=== PATIENT | female | born 1980 | race Caucasian/White ===

== ENCOUNTER 2022-10-09 07:30 | Emergency (ER) | payer OTHER, SELFPAY ==
[2022-10-09 07:40] VITALS: BP 107/68; PULSE 94; RESP 16; TEMP 36.3; O2SAT 99; BMI 26.9
--- NOTE | 2022-10-09 08:31 | ED_ITS ---
HPI - Dental/Oral General Chief complaint: Dental/Oral Stated complaint: Facial swelling Time Seen by Provider: 10/09/22 08:25 Source: patient Mode of arrival: ambulatory Limitations: no limitations History of Present Illness HPI Narrative: 42-year-old female with history of poor dentition, poor dental care, history of drug use who presents to the ER for evaluation of acute onset of right upper dental pain and facial swelling that started yesterday. She states she does not have a dentist and cannot recall the last time she went to a dentist. She denies any known injury but has several broken and infected teeth. She states the right upper molar feels infected. She woke up this morning with swelling to her right cheek. She has no pain with opening and closing of her jaw. No fever or chills. She took Aleve with some relief. MD Complaint: tooth pain Location: Tooth # (3) Onset (ago): day(s) (2) Duration: worsening Severity: moderate Severity scale (1-10): 7 Relieving factors: NSAIDs Exacerbating factors: nothing Context: history of dental caries and poor dental care Associated symptoms: gum swelling Treatment prior to arrival: none Related Data Previous Rx's Medication Instructions Recorded amoxicillin 875 mg-potassium 1 tab PO BID #20 tabs 10/09/22 clavulanate 125 mg tablet ibuprofen 600 mg tablet 600 mg PO Q8H PRN pain #20 tabs 10/09/22 Allergies Allergy/AdvReac Type Severity Reaction Status Date / Time latex [LATEX] Allergy Severe ANAPHYLAXIS Verified 10/09/22 07:39 Review of Systems Review of Systems: Yes all other systems are reviewed and are negative [facility] Social History Social History Advance Directives: No Advance Directives Information Provided: Yes Physical Exam Vital Signs: Vital Signs: Last Vital Signs Temp 97.4 F 10/09/22 07:40 Pulse 94 10/09/22 07:40 Resp 16 10/09/22 07:40 BP 107/68 10/09/22 07:40 Pulse Ox 99 10/09/22 07:40 O2 Del Method Room Air 10/09/22 07:40 BMI result Body Mass Index 26.9 Appearance: Alert. Oriented X3. No acute distress. HEENT: Normocephalic, atraumatic. There is mild to moderate right-sided facial swelling in the right maxillary area. No trismus. She has poor dentition with several broken and decaying teeth. Right upper molar, tooth 3. It is tender with associated gingival swelling and erythema, no palpable fluctuance. CVS: Normal heart rate and rhythm. Pulses normal. Respiratory: No respiratory distress. Lungs are clear throughout Skin: Skin warm and dry. Normal skin color. Normal skin turgor. No rashes. Extremities: Normal inspection x4, no joint swelling. Neuro: Oriented X 3. No motor deficit. No sensory deficit. Medical Decision Making Medical Decision Making MDM Narrative: 42-year-old female presents to the ER for evaluation of right-sided facial swelling and right upper molar pain since yesterday. No palpable area on examination to drain today. Will start on empiric antibiotics and NSAIDs for anti-inflammatory and pain control. Emergency dental is provided to the patient. Importance of dental follow-up was encouraged and patient expressed understanding. She is on Suboxone. Will defer narcotics. She is stable for discharge home with oral antibiotics and ibuprofen. Patient agrees with plan. 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 Complete the entire course and do not miss any doses. You can also use [id number] topical Orajel as needed to for pain If you develop new or worsening symptoms call 911 or come back to the ER for further evaluation. Prescriptions: New amoxicillin-pot clavulanate 875-125 mg tablet 1 tab PO BID Qty: 20 0RF ibuprofen 600 mg tablet 600 mg PO Q8H PRN (Reason: pain) Qty: 20 0RF Interventions: ED Discharge Assessment Last Done: 10/09/22 08:49 Discharge Date/Time: 10/09/22 08:49
== END 2022-10-09 08:49 | disposition home or self-care (01) ==
PROVIDERS: Emergency Provider Emergency Medicine
DX: K04.7 Periapical abscess without sinus (principal); Z79.899 Other long term (current) drug therapy
CPT/HCPCS: 99282; 99283

== ENCOUNTER 2024-08-31 00:40 | Emergency (ER) | payer OTHER, SELFPAY ==
--- NOTE | 2024-08-31 | ECG_ITS ---
Test Reason : LEG SWELLING Blood Pressure : */* mmHG Vent. Rate : 94 BPM Atrial Rate : 94 BPM P-R Int : 128 ms QRS Dur : 86 ms QT Int : 374 ms P-R-T Axes : 77 46 62 degrees QTcB Int : 467 ms Normal sinus rhythm Normal ECG No previous ECGs available Referred By: Generic ED Physician Electronically Signed By: BILL HOUSE MD
--- NOTE | ~2024-08-31 | US_ITS ---
CLINICAL HISTORY: bilateral leg pain and swelling Venous duplex ultrasound bilateral lower extremity Comparison: None Findings: The visualized deep veins are fully compressible with normal Doppler color flow and spectral tracings. IMPRESSION: 1. Negative for bilateral lower extremity deep vein thrombosis. This document has been electronically signed by: Snow Hutton on 08/31/2024 05:24:15
[2024-08-31 00:47] VITALS: BP 139/88; PULSE 103; RESP 18; TEMP 37.1; O2SAT 97; BMI 29.6
[2024-08-31 01:10] VITALS: BP 136/88; PULSE 94; RESP 19; TEMP 36.6; O2SAT 98
[2024-08-31 01:49] LABS: Alanine Aminotransferase 71 U/L (0-31); Albumin Level 3.7 g/dL (3.5-5.0); Anion Gap 16 (12-20); Aspartate Amino Transferase 67 U/L (5-31); Bilirubin Total 0.2 mg/dL (0.0-1.0); Blood Urea Nitrogen 10 mg/dL (9-16); Calcium 8.8 mg/dL (8.4-10.2); Carbon Dioxide 21 mmol/L (22-29); Chloride 105 mmol/L (96-108); Estimated Glomerular Filt Rate > 60; Glucose Random 98 mg/dL (60-115); Potassium 4.3 mmol/L (3.3-5.1); Sodium 138 mmol/L (135-145); Total Protein 7.6 g/dL (6.5-8.0)
[2024-08-31 01:51] LABS: Basophils Percent Auto 0.3 % (0-2); Eosinophils Absolute Auto 0.1 X10*3/uL (0.0-0.4); Eosinophils Percent Auto 1.1 % (0-4); Hematocrit 37.4 % (37.0-47.0); Hemoglobin 12.2 g/dl (12.0-16.0); Imm Gran Abs Auto 0.01 X10*3/uL (0.00-0.03); Imm Gran Pct Auto 0.2 % (0.0-0.4); Lymphocytes Absolute Auto 2.8 X10*3/uL (1.2-4.9); Lymphocytes Percent Auto 41.4 % (20-40); Mean Corpuscular HGB Conc 32.6 g/dl (31.0-35.0); Mean Corpuscular Hemoglobin 25.7 pg (27.0-33.0); Mean Corpuscular Volume 78.9 fL (80.0-98.0); Mean Platelet Volume 9.3 fL (9.4-12.3); Monocytes Absolute Auto 0.4 X10*3/uL (0.1-1.2); Monocytes Percent Auto 6.5 % (2-11); Neutrophils Absolute Auto 3.4 x10*3/uL (2.0-8.3); Neutrophils Percent Auto 50.5 % (45-73); Platelet Count 209 X10*3/uL (160-400); Red Blood Count 4.74 X10*6/uL (4.20-5.50); Red Cell Distribution Width 13.4 % (11.0-16.0); White Blood Count 6.7 X10*3/uL (4.8-10.8)
[2024-08-31 01:53] LABS: MANUAL DIFF FLAG NO
[2024-08-31 02:10] LABS: B Type Natriuretic Peptide 13 pg/mL (<100)
[2024-08-31 02:13] LABS: Alkaline Phosphatase 66 U/L (39-117)
--- NOTE | 2024-08-31 02:50 | ED.GENADULT ---
HPI - General Adult General Chief complaint: Extremity Problem Stated complaint: swollen legs Time Seen by Provider: 08/31/24 02:50 History of Present Illness ED Provider: Jeni HAY narrative: The patient is a 44-year-old female who denies any significant past medical history (although she reports remote history of IV drug use). She says that over the last 2 weeks she has had worsening and persistent swelling of both legs, primarily in the lower legs. She denies having had any fever, sweats, chills. She denies any injuries. She denies any chest pain or shortness of breath. She says that she has never had problems with swollen legs in the past. She says that she spends a lot of time on her feet. She says that the swelling is somewhat better if she has been lying down for awhile. Related Data Previous Rx's ?Medication ?Instructions ?Recorded amoxicillin 875 mg-potassium 1 tab PO BID #20 tabs 10/09/22 clavulanate 125 mg tablet ibuprofen 600 mg tablet 600 mg PO Q8H PRN pain #20 tabs 10/09/22 Allergies Allergy/AdvReac Type Severity Reaction Status Date / Time latex [LATEX] Allergy Severe ANAPHYLAXIS Verified 08/31/24 00:50 Review of Systems Review of Systems: Yes all other systems are reviewed and are negative Physical Exam ED Vital Signs: Vital Signs - 24 hr 08/31/24 00:47 08/31/24 01:10 08/31/24 04:00 Temperature 98.7 F 97.8 F 98.0 F Pulse Rate 103 H 94 70 Respiratory Rate 18 19 18 Blood Pressure 139/88 136/88 135/74 Pulse Oximetry 97 98 98 Oxygen Delivery Method Room Air Room Air Room Air BMI result Body Mass Index 29.6 Const Other: the patient had fallen asleep while waiting to be seen. She woke easily to a normal mental status. She was awake and alert and did not seem the obvious distress are obviously acutely ill in any way. Orientation/consciousness: patient oriented x3 HENMT Other: Face is symmetrical. Mucous membranes are moist. No abnormalities to the face or mouth. Eyes General: appearance normal, both eyes and all related structures Neck Neck: Yes normal visual inspection, Yes full ROM and Yes no JVD Resp Effort & Inspection: normal respiratory effort Auscultation: clear to auscultation bilaterally Cardio Rate: regular rate Rhythm: regular rhythm Heart sounds: S1 normal heart sound present and S2 normal heart sound present GI Other: Abdomen is soft, nontender Skin Other: skin is dry and unremarkable. No erythema to the lower legs. No pitting edema. Neuro General: patient oriented x3, gait normal, tone normal, moves all extremities, no focal motor deficits and CN's II-XI intact bilaterally Extrem Other: I did not appreciate any definite abnormal swelling of the lower legs. There was no pitting edema. There is no asymmetry. No significant tenderness. No erythema. Good pulses in the feet. Medical Decision Making Medical Decision Making [facility] Narrative: The patient is a 44-year-old woman who is concerned that she is having a sense of swelling in her legs. She says she spends lot of time on her feet. I do not really appreciate any objective findings swelling or edema in lower legs. The patient's workup in the emergency room was unremarkable. She has a normal EKG. Labs show home minor transaminitis but otherwise fairly unremarkable. Bilateral lower extremity ultrasound shows no DVT. The patient was reassured that no dangerous process seems to be at work. She is advised to try to rest and take it easy and to stay off her feet and elevate her legs often. She should try getting compression stockings if she can. She needs to get a primary care doctor. She should return if worse. Lab Data 08/31/24 01:46 08/31/24 01:25 Labs: Lab Results 08/31/24 08/31/24 Range/Units 01:25 01:46 WBC 6.7 (4.8-10.8) X10*3/uL RBC 4.74 (4.20-5.50) X10*6/uL Hgb 12.2 (12.0-16.0) g/dl Hct 37.4 (37.0-47.0) % MCV 78.9 L (80.0-98.0) fL MCH 25.7 L (27.0-33.0) pg MCHC 32.6 (31.0-35.0) g/dl RDW 13.4 (11.0-16.0) % Plt Count 209 (160-400) X10*3/uL MPV 9.3 L (9.4-12.3) fL Immature Gran % (Auto) 0.2 (0.0-0.4) % Neut % (Auto) 50.5 (45-73) % Lymph % (Auto) 41.4 H (20-40) % [place] % (Auto) 6.5 (2-11) % Eos % (Auto) 1.1 (0-4) % Baso % (Auto) 0.3 (0-2) % Lymph # (Auto) 2.8 (1.2-4.9) X10*3/uL [place] # (Auto) 0.4 (0.1-1.2) X10*3/uL Eos # (Auto) 0.1 (0.0-0.4) X10*3/uL Baso # (Auto) 0.0 (0.0-0.2) X10*3/uL Abs Immat Gran (auto) 0.01 (0.00-0.03) X10*3/uL Absolute Neuts (auto) 3.4 (2.0-8.3) x10*3/uL Absolute Nucleated RBC 0.000 (0.0-0.012) X10*3/uL Nucleated RBC % (auto) 0.0 (0.0-0.2) /100WBC Sodium 138 (135-145) mmol/L Potassium 4.3 (3.3-5.1) mmol/L Chloride 105 (96-108) mmol/L Carbon Dioxide 21 L (22-29) mmol/L Anion Gap 16 (12-20) BUN 10 (9-16) mg/dL Creatinine 0.57 (0.5-1.4) mg/dL Estim Creat Clear Calc 109.0 Estimated GFR > 60 Random Glucose 98 (60-115) mg/dL Calcium 8.8 (8.4-10.2) mg/dL Total Bilirubin 0.2 (0.0-1.0) mg/dL AST 67 H (5-31) U/L ALT 71 H (0-31) U/L Alkaline Phosphatase 66 (39-117) U/L B-Natriuretic Peptide 13 (<100) pg/mL Total Protein 7.6 (6.5-8.0) g/dL Albumin 3.7 (3.5-5.0) g/dL Independent Interpretation I performed an independent interpretation of an: EKG Interpretation: [place] at 0109 shows normal sinus rhythm at 94 beats per minute. It is is a normal EKG. Discharge Plan Discharge Clinical Impression: Lower extremity edema Patient Disposition: Home, Self-Care Additional Instructions: Your testing in the emergency room today seems reassuring. There is no blood clot in your legs. I think that the symptoms you has been experiencing may be related to being on your feet too much. Please try to stay off your feet as much as you can and elevate your legs often. Consider getting compression stockings. Please contact your insurance to find out who has been assigned as your primary care doctor and try to make a follow up appointment. I have provided the contact information for some local medical practices which you can call if you have trouble determining who is your primary care doctor. Return to the emergency room if significantly worse. Prescriptions: No Action amoxicillin-pot clavulanate 875-125 mg tablet 1 tab PO BID Qty: 20 0RF ibuprofen 600 mg tablet 600 mg PO Q8H PRN (Reason: pain) Qty: 20 0RF Referrals: [facility] [Provider Group] [facility] [Provider Group] [facility] [place] [Provider Group] [facility] [place] [Provider Group] [facility] [place] [Provider Group] Interventions: ED Discharge Assessment Last Done: 08/31/24 06:19 Discharge Date/Time: 08/31/24 06:21 Print Language: Swedish
[2024-08-31 04:00] VITALS: BP 135/74; PULSE 70; RESP 18; TEMP 36.7; O2SAT 98
[2024-08-31 06:19] VITALS: BP 135/74; PULSE 70; RESP 18; TEMP 36.7; O2SAT 98
== END 2024-08-31 06:21 | disposition home or self-care (01) ==
PROVIDERS: Emergency Provider Emergency Medicine
DX: R60.0 Localized edema (principal)
CPT/HCPCS: 36415; 80053; 83880; 85025; 93005; 93970; 99284

== ENCOUNTER → 2024-08-31 01:09 | Outpatient (BNV) | payer OTHER, SELFPAY | PROVIDERS: Emergency Provider Emergency Medicine; Visit Provider Internal Medicine Cardiovascular Disease | DX: R60.0 Localized edema (principal) | CPT/HCPCS: 93010 ==

== ENCOUNTER → 2024-08-31 03:01 | Outpatient (BNV) | payer OTHER, SELFPAY | PROVIDERS: Emergency Provider Emergency Medicine; Visit Provider Radiology Vascular & Interventional Radiology | DX: M79.604 Pain in right leg (principal); M79.605 Pain in left leg | CPT/HCPCS: 93970 ==